=== PATIENT | female | born 1995 | race Two or more races ===

== ENCOUNTER 2016-08-31 17:07 | Emergency (ER) | payer MEDICAID ==
[~2016-08-31] VITALS: Ht 152.4 cm; Wt 73.0 kg
[2016-08-31] MEDS ORDERED: SODIUM CHLORIDE 0.9% 1,000 ML IV ONE (18:32)
[2016-08-31] MEDS ORDERED: ACETAMINOPHEN 325MG TABLET PO ONE (18:45)
[2016-08-31 19:00] LABS: BASOPHILS % 0.9 % (0.0-2.0); EOSINOPHILS % 0.3 % (0.0-5.0); HEMATOCRIT. 36.8 % (36.0-48.0); LYMPHOCYTES % 19.1 % (20.0-50.0); MEAN CORPUSCULAR HEMOGLOBIN 24.3 pg (28.0-32.0); MEAN CORPUSCULAR VOLUME 74.3 fL (81.0-99.0); MEAN PLATELET VOLUME 8.3 fl (7.4-10.4); MONOCYTES % 6.5 % (2.0-8.0); NEUTROPHILS % 73.2 % (40.0-76.0); PLATELET 366 x1000/uL (130-400); RED BLOOD CELL COUNT 4.95 mill/uL (4.2-5.4); RED CELL DISTRIBUTION WIDTH 15.8 % (11.6-14.6)
[2016-08-31 19:07] LABS: CARBON DIOXIDE 26 mEq/L (21-32); CHLORIDE 104 mEq/L (98-107)
[2016-08-31 19:14] LABS: TROPONIN I < 0.02 ng/mL (0.00-0.04)
[2016-08-31 19:17] LABS: HCG SCREEN NEGATIVE
[2016-08-31 21:10] VITALS: BP 122/75
== END 2016-08-31 21:20 | disposition home or self-care (01) ==
LOC: ER 18:31
DX: S00.83XA Contusion of other part of head, initial encounter (principal); E86.0 Dehydration; R55 Syncope and collapse; G43.909 Migraine, unspecified, not intractable, without status migrainosus; W22.8XXA Striking against or struck by other objects, initial encounter; Y93.89 Activity, other specified; Y99.8 Other external cause status; Y92.89 Other specified places as the place of occurrence of the external cause
CPT/HCPCS: 36415; 70450; 70486; 80048; 84484; 84703; 85025; 93005; 96360; 96361; 99285; J7030; Z7610

== ENCOUNTER 2020-08-06 05:00 | Inpatient (IN) | payer SELFPAY ==
[~2020-08-06] VITALS: Ht 154.9 cm; Wt 72.7 kg
[2020-08-06] MEDS ORDERED: ACETAMINOPHEN 325MG TABLET PO STA (05:52)
[2020-08-06 06:00] LABS: BASOPHILS % 0.5 % (0.0-2.0); EOSINOPHILS % 0.1 % (0.0-5.0); HEMATOCRIT. 36.1 % (36.0-48.0); HEMOGLOBIN. 11.9 g/dL (12.0-16.0); LYMPHOCYTES % 10.7 % (20.0-50.0); MEAN CORPUSCULAR HEMOGLOBIN 23.8 pg (28.0-32.0); MEAN CORPUSCULAR VOLUME 72.3 fL (81.0-99.0); MEAN PLATELET VOLUME 8.5 fl (7.4-10.4); MONOCYTES % 6.3 % (2.0-8.0); NEUTROPHILS % 82.4 % (40.0-76.0); PLATELET 412 x1000/uL (130-400); RED CELL DISTRIBUTION WIDTH 15.4 % (11.6-14.6)
[2020-08-06] MEDS ORDERED: SODIUM CHLORIDE 0.9% 1000ML BAG (SEPSIS BOLUS) IV ONE (06:00)
[2020-08-06 06:05] LABS: CHLORIDE 104 mEq/L (98-107)
[2020-08-06] MEDS ORDERED: PIPERACILLIN/TAZ 3.375G PREMIX 50 ML IV ONE (06:30)
[2020-08-06 06:45] LABS: HCG SCREEN NEGATIVE
[2020-08-06 07:00] LABS: INR 1.1; PROTHROMBIN TIME 11.9 sec (9.6-11.0)
[2020-08-06 07:03] LABS: CLARITY URINE CLEAR (CLEAR); COLOR URINE YELLOW (YELLOW); KETONES URINE 2+ (NEGATIVE); LEUKOCYTE ESTERASE URINE NEGATIVE (NEGATIVE); NITRITE URINE NEGATIVE (NEGATIVE); OCCULT BLOOD URINE NEGATIVE (NEGATIVE); PH URINE 7.5 (4.5-8.0); PROTEIN URINE NEGATIVE (NEGATIVE); SPECIFIC GRAVITY URINE 1.022 (1.005-1.030)
[2020-08-06] MEDS ORDERED: VANCOMYCIN 1 G PREMIX 200 ML IV SCH (07:30)
[2020-08-06 09:00] VITALS: BP_SYST 110; BP_SYST 92; BP_SYST 96; BP_DIAS 56; BP_DIAS 61; BP_DIAS 69
[2020-08-06] MEDS ORDERED: CEFTRIAXONE 1 G PREMIX 50 ML IV SCH (12:15)
[2020-08-06 12:20] VITALS: BP 99/60
[2020-08-06] MEDS: CEFTRIAXONE 1,000 MG in DEXTROSE 5% WATER 50 ML IV SCH (13:21)
[2020-08-06] MEDS ORDERED: ACETAMINOPHEN 650MG/20.3ML UDC PO PRN (15:15)
[2020-08-06] MEDS: ACETAMINOPHEN 325MG TABLET PO PRN (15:26)
[2020-08-06] MEDS ORDERED: ONDANSETRON HCL 4MG/2ML INJ IV PRN (16:00)
[2020-08-06] MEDS ORDERED: CLONIDINE 0.1MG TABLET PO PRN (16:00)
[2020-08-06] MEDS ORDERED: MAGNESIUM/ALUMINUM HYDROXIDE/SIMETHICONE 30ML UDC PO PRN (16:00)
[2020-08-06 16:20] VITALS: BP 101/63
[2020-08-06] MEDS: ENOXAPARIN 40MG/0.4ML SYR SUBCUT SCH (16:50)
[2020-08-06] MEDS: SODIUM CHLORIDE 0.9% 1,000 ML IV SCH (16:51)
[2020-08-06 19:41] LABS: *AMPHETAMINES SCREEN URINE NEGATIVE (NEGATIVE); *BARBITURATES SCREEN URINE NEGATIVE (NEGATIVE)
[2020-08-06 19:42] LABS: *BENZODIAZEPINES SCREEN URINE NEGATIVE (NEGATIVE); *COCAINE SCREEN URINE NEGATIVE (NEGATIVE); CANNABINOID URINE SCREEN NEGATIVE (NEGATIVE); METHADONE URINE SCREEN NEGATIVE (NEGATIVE); OPIATES URINE SCREEN NEGATIVE (NEGATIVE); PHENCYCLIDINE URINE SCREEN NEGATIVE (NEGATIVE)
[2020-08-06 20:00] VITALS: BP_SYST 104; BP_SYST 105; BP_SYST 109; BP_DIAS 51; BP_DIAS 61; BP_DIAS 67
[2020-08-07] VITALS: BP 107/66
[2020-08-07] MEDS: ACETAMINOPHEN 325MG TABLET PO PRN (00:36)
[2020-08-07 04:00] VITALS: BP 94/54
[2020-08-07 07:45] LABS: BASOPHILS % 0.4 % (0.0-2.0); EOSINOPHILS % 1.1 % (0.0-5.0); HEMATOCRIT. 33.2 % (36.0-48.0); HEMOGLOBIN. 10.6 g/dL (12.0-16.0); LYMPHOCYTES % 20.6 % (20.0-50.0); MEAN CORPUSCULAR HEMOGLOBIN 23.1 pg (28.0-32.0); MEAN CORPUSCULAR VOLUME 72.5 fL (81.0-99.0); MEAN PLATELET VOLUME 8.4 fl (7.4-10.4); NEUTROPHILS % 70.9 % (40.0-76.0); PLATELET 329 x1000/uL (130-400); RED BLOOD CELL COUNT 4.58 mill/uL (4.2-5.4); RED CELL DISTRIBUTION WIDTH 15.7 % (11.6-14.6)
[2020-08-07 07:52] LABS: CHLORIDE 110 mEq/L (98-107)
[2020-08-07 08:00] VITALS: BP_SYST 107; BP_SYST 110; BP_SYST 98; BP_DIAS 52; BP_DIAS 58; BP_DIAS 67
[2020-08-07 08:07] LABS: LDL CHOLESTEROL 91 mg/dL (5-100); PHOSPHORUS 3.2 mg/dL (2.5-4.9)
[2020-08-07 08:08] LABS: T4 FREE 1.16 ng/dL (0.76-1.46)
[2020-08-07 08:09] LABS: HDL CHOLESTEROL 31 mg/dL (40-59)
[2020-08-07] MEDS: SODIUM CHLORIDE 0.9% 1,000 ML IV SCH (08:34)
[2020-08-07 12:00] VITALS: BP 104/63
[2020-08-07] MEDS: CEFTRIAXONE 1,000 MG in DEXTROSE 5% WATER 50 ML IV SCH (12:43)
[2020-08-07 16:00] VITALS: BP_SYST 100; BP_SYST 109; BP_SYST 98; BP_DIAS 51; BP_DIAS 55; BP_DIAS 64
[2020-08-07] MEDS: ENOXAPARIN 40MG/0.4ML SYR SUBCUT SCH (17:17)
[2020-08-07 20:00] VITALS: BP_SYST 104; BP_SYST 107; BP_SYST 96; BP_DIAS 67; BP_DIAS 68; BP_DIAS 69
[2020-08-08] VITALS: BP 101/65
[2020-08-08] MEDS: SODIUM CHLORIDE 0.9% 1,000 ML IV SCH (01:20)
[2020-08-08 04:00] VITALS: BP 97/62
[2020-08-08 06:59] LABS: BASOPHILS % 0.2 % (0.0-2.0); EOSINOPHILS % 1.4 % (0.0-5.0); HEMATOCRIT. 31.9 % (36.0-48.0); HEMOGLOBIN. 10.4 g/dL (12.0-16.0); LYMPHOCYTES % 30.4 % (20.0-50.0); MEAN CORPUSCULAR HEMOGLOBIN 23.4 pg (28.0-32.0); MEAN CORPUSCULAR VOLUME 71.8 fL (81.0-99.0); MEAN PLATELET VOLUME 8.5 fl (7.4-10.4); MONOCYTES % 7.2 % (2.0-8.0); NEUTROPHILS % 60.8 % (40.0-76.0); PLATELET 357 x1000/uL (130-400); RED BLOOD CELL COUNT 4.45 mill/uL (4.2-5.4); RED CELL DISTRIBUTION WIDTH 15.8 % (11.6-14.6)
[2020-08-08 07:04] LABS: CHLORIDE 107 mEq/L (98-107)
[2020-08-08] MEDS ORDERED: POTASSIUM CHLORIDE 20MEQ TABLET SR PO SCH (07:15)
[2020-08-08 08:00] VITALS: BP_SYST 110; BP_SYST 111; BP_SYST 112; BP_DIAS 58; BP_DIAS 60; BP_DIAS 61
[2020-08-08 12:00] VITALS: BP 110/61
[2020-08-08 12:18] VITALS: BP 110/62
[2020-08-08] MEDS: CEFTRIAXONE 1,000 MG in DEXTROSE 5% WATER 50 ML IV SCH (12:39)
== END 2020-08-08 13:00 | disposition home or self-care (01) | DRG 720 ==
LOC: ER 05:00 → 6WST 07:07 → EDBEDREQ 07:11 → EDBEDREQTM 07:11 → ENRESERV 07:52
PROVIDERS: ADMIT Internal Medicine; ATTEND Internal Medicine
DX: A41.9 Sepsis, unspecified organism (principal); E87.2 Acidosis; Z79.899 Other long term (current) drug therapy
CPT/HCPCS: 36415; 71045; 74176; 80048; 80053; 80061; 80076; 80305; 81003; 82962; 83605; 83735; 84100; 84145; 84439; 84443; 84484; 84703; 85025; 87070; 87430; 93005; 93306; 93970; 99291; J0696; J1650; J2543; J3370; J7030; J7060